=== PATIENT | male | born 2000 | race African-American/Black ===

== ENCOUNTER 2023-12-05 17:05 | Emergency (ER) | payer OTHER ==
[~2023-12-05] VITALS: Ht 185.4 cm; Wt 63.5 kg
[2023-12-05 17:15] VITALS: BP_SYST 121; PULSE 53; RESP 19; TEMP 98; O2SAT 98
[2023-12-05 19:19] VITALS: BP_SYST 121; PULSE 53; RESP 19; TEMP 98; O2SAT 98
== END 2023-12-05 19:22 | disposition home or self-care (01) ==
LOC: SED 17:05
DX: S16.1XXA Strain of muscle, fascia and tendon at neck level, initial encounter (principal); S09.90XA Unspecified injury of head, initial encounter; Z79.899 Other long term (current) drug therapy; W22.8XXA Striking against or struck by other objects, initial encounter; Y93.89 Activity, other specified; Y92.89 Other specified places as the place of occurrence of the external cause; Y99.8 Other external cause status
CPT/HCPCS: 70450-TC; 72125-TC; 99284